=== PATIENT | female | born 1945 | race Caucasian/White ===

== ENCOUNTER 2020-12-23 13:44 | Outpatient (CLI) | payer MEDICARE, SELFPAY ==
--- NOTE | ~2020-12-23 | XR_ITS ---
EXAMINATION: XR abdomen/kub 1V DATE: 12/23/2020 14:08 INDICATION: Right kidney stone. TECHNIQUE: A supine view of the abdomen on 2 radiographs was obtained. COMPARISON: CT abdomen and pelvis 12/23/2020 FINDINGS: There are no dilated loops of bowel. There are changes of posterior fusion procedure at L4- L5. IMPRESSION: 1. No urolithiasis. Reviewed, dictated and finalized at location A. IMPRESSION: 1. No urolithiasis.
--- NOTE | ~2020-12-23 | CT_ITS ---
EXAMINATION: CT abdomen pelvis wo con DATE: 12/23/2020 14:12 INDICATION: Kidney calculus TECHNIQUE: Computed tomography (CT) of the abdomen and pelvis was performed without intravenous contr ast. Automated exposure control and iterative reconstruction technique were employed. Exam dose: 488 .23 mGy-cm total exam DLP. COMPARISON: 12/23/2020 KUB FINDINGS: There is mild discoid atelectasis or scarring at the lung bases. Normal heart size. No pe ricardial or pleural effusion. No hepatic, splenic, pancreatic, adrenal or renal space occupying mass lesion is evident on this nonc ontrast examination. No bile duct or pancreatic duct dilatation. Bilateral renal scarring, left greater than right. No renal or ureteral calculus or hydroureteroneph rosis. Some small small stones are noted in the dependent aspect of the urinary bladder. The urinary bladder and uterus and adnexa are otherwise unremarkable. There is atherosclerotic calcification but normal caliber of the abdominal aorta. No intraperitoneal or retroperitoneal or pelvic mass lesion or adenopathy or ascites. There is diverticulosis of the colon; no CT evidence of diverticulitis. No bowel obstruction, bowel w all thickening, pneumatosis or intraperitoneal free air is detected. There is severe degenerative disc disease at L1-2, L2-3, L3-4, moderate degenerative disc disease and mild anterolisthesis due to degenerative changes apophyseal joints at L4-5. Posterior spinous proces s surgical fusion at L4-5. IMPRESSION: Small bladder stones; no renal or ureteral calculi or hydroureteronephrosis Mild colonic diverticulosis; no CT evidence of diverticulitis Reviewed, dictated and finalized at Location A. Reviewed, dictated and finalized at location B. IMPRESSION: Small bladder stones; no renal or ureteral calculi or hydrouretero nephrosis Mild colonic diverticulosis; no CT evidence of diverticulitis
== END 2020-12-23 13:45 | disposition home or self-care (01) ==
LOC: ANHIMG 13:49
PROVIDERS: Visit Provider Urology
DX: N20.0 Calculus of kidney (principal); N21.0 Calculus in bladder; K57.30 Diverticulosis of large intestine without perforation or abscess without bleeding
CPT/HCPCS: 74018; 74176

== ENCOUNTER 2021-02-06 10:20 | Outpatient (CLI) | payer MEDICARE, SELFPAY ==
--- NOTE | 2021-02-06 10:26 | ECG_ITS ---
Measurements Intervals [place] Rate: 73 P: 62 DE: 201 QRS: 22 QRSD: 103 T: 17 QT: 387 QTc: 429 Interpretive Statements SINUS RHYTHM LOW QRS VOLTAGE IN PRECORDIAL LEADS BASELINE ARTIFACT- I, II, III, AVR, V5-V6 BORDERLINE ECG Electronically Signed On 02-06-2021 10:55:23 CDT by Jose Roach D.O.
== END 2021-02-06 10:21 | disposition home or self-care (01) ==
PROVIDERS: PCP Internal Medicine; Visit Provider Urology
DX: N21.0 Calculus in bladder (principal); E78.00 Pure hypercholesterolemia, unspecified; Z01.818 Encounter for other preprocedural examination; R94.31 Abnormal electrocardiogram [ECG] [EKG]
CPT/HCPCS: 87086; 87088; 93005

== ENCOUNTER 2021-02-11 01:21 | Day surgery (SDC) | payer MEDICARE, SELFPAY ==
[2021-01-31 12:47] VITALS: BMI 40.5
[2021-02-11] VITALS (8 sets, daily range): BP systolic 110–154; BP diastolic 60–74; PULSE 55–72; RESP 13–20; TEMP 36.2–36.3; O2SAT 94–100; BMI 41.3
--- NOTE | 2021-02-11 10:40 | WPDANESEPPF ---
Anes - Initial Pre Proc Eval Procedure: Operation Date: 02/11/21 12:30 Proposed Procedures p Cystoscopy, Bladder Stones Extraction - Robert Lewis MD Date/Time: 02/11/21 10:40 Surgeon: Robert Lewis MD Pre Op Diagnosis: Bladder Stones, Urethral Stricture Patient Data Age: 75 Gender: F Height: 1.55 m Weight: 97.27 kg Allergies Allergy/AdvReac Type Severity Reaction Status Date / Time metoclopramide [From Reglan] AdvReac Intermediate Shakiness Verified 02/11/21 10:42 Home Medications Medication Instructions Recorded Confirmed Type aspirin 81 mg PO HS 01/31/21 01/31/21 History atorvastatin 40 mg HS 01/31/21 01/31/21 History celecoxib 200 mg QAM 01/31/21 01/31/21 History cetirizine 10 mg PO BID 01/31/21 01/31/21 History diazepam 2 mg BID 01/31/21 01/31/21 History dicyclomine 10 mg TID 01/31/21 01/31/21 History esomeprazole magnesium [Nexium] 40 mg BID 01/31/21 01/31/21 History levothyroxine 100 mcg QAM 01/31/21 01/31/21 History lidocaine [Lidocaine Pain Relief] 1 patch TOPICAL PRN PRN 01/31/21 01/31/21 History lubiprostone [Amitiza] 24 mcg PO BID 01/31/21 01/31/21 History nitrofurantoin monohyd/m-cryst 100 mg HS 01/31/21 01/31/21 History oxybutynin chloride 5 mg PO BID 01/31/21 01/31/21 History polyethylene glycol 3350 17 g PRN PRN 01/31/21 01/31/21 History sulfamethoxazole-trimethoprim 1 tablet DAILY 01/31/21 01/31/21 History trazodone 150 mg PO HS 01/31/21 01/31/21 History ECG: Date of Service: 02/06/21 Procedure(s): CA 12 lead EKG Accession Number(s): [id number] cc: ~ Measurements Intervals [place] Rate: 73 P: 62 DC: 201 QRS: 22 QRSD: 103 T: 17 QT: 387 QTc: 429 Interpretive Statements SINUS RHYTHM LOW QRS VOLTAGE IN PRECORDIAL LEADS BASELINE ARTIFACT- I, II, III, AVR, V5-V6 BORDERLINE ECG Electronically Signed On 02-06-2021 10:55:23 CDT by Jose Roach D.O. Patient hx anesthesia problems: none Family hx anesthesia problems: none [facility] Past Medical History Medical History (Updated 02/11/21 @ 10:54 by Hernando Garcia MD) Bronchomalacia Chronic GERD HTN (hypertension) Hypercholesterolemia Hypothyroidism IBS (irritable bowel syndrome) Morbid obesity with BMI of 40.0-44.9, adult On home O2 Osteoarthritis Social History Social History Smoking status: Never smoker Second hand tobacco smoke exposure: No Alcohol intake: never Substance use: never Substance use type: does not use Living arrangements: with family Spiritual care concerns: No Anes - Eval Final PreProcedure Day of Procedure 02/11/21 10:40 Patient weight: obese Heart: regular rate and rhythm Lungs: clear to auscultation and normal air movement Airway: Mallampati scale class II Neurological: alert and oriented Last oral intake: >/= 8 hours ASA classification: III Emergent: no Anesthetic plan: proceed Anesthesia type and monitoring: general LMA Informed Consent: The patient's anesthetic plan and its attendant risks and benefits were discussed with the patient/family/POA. Questions were solicited and answers provided to the satisfaction of the patient/family/POA.
--- NOTE | 2021-02-11 10:52 | SUR.PREOP ---
PT WEARING SUPPORT HOSE FROM HOME FOR LEG SWELLING. ASKING TO WEAR THEM TO OR. CHANGED TO KNEE HIGH RHODA HOSE PER PT REQUEST.
[2021-02-11] MEDS: LACTATED RINGERS 1,000 ML 30 ML IV CONT (11:02)
--- NOTE | 2021-02-11 12:02 | WPDHPUPDATE1 ---
History and Physical Update Update Date/Time: 02/11/21 12:02 History and Physical has been reviewed, including an updated exam of the patient. There are NO changes in the patient's condition. Risks, benefits, and alternatives have been discussed and questions answered. Patient agrees to proceed with procedure. Proceed with cysto, extraction of bladder stones
[2021-02-11] MEDS: ceFAZolin 2 GM/D5W 50 ML 2 GM/50 ML BAG IVPB (12:37)
[2021-02-11] MEDS: LIDOCAINE HCL 2% GEL UROJET 10 ML PKG MUCOUS MEM (12:49)
--- NOTE | 2021-02-11 13:00 | P.OP_ITS ---
Procedure Note - Detailed Date of Procedure 02/11/21 Pre-op Diagnosis Bladder Stones, Urethral Stricture Post-op Diagnosis same Procedure Performed Cysto, urethral dilation to 30 Croatian, extraction of bladder calculi Surgeon Robert Lewis MD Anesthesia general Description of Procedure Patient is taken the operative suite correctly identified. Once anesthesia was obtained she was placed in dorsal lithotomy position and prepped and draped usual sterile fashion. Her urethra was dilated to 30 Croatian without difficulty. Twenty-two Croatian scope was inserted the bladder. There is no tumors noted. She has approximately 15-20 small little round stones which were 1-2 mm in size. These were then extracted. Some of them were sent for analysis. 2% viscous lidocaine was inserted urethra patient is taken recovery stable condition. Drains No Packing No Pathology yes Complications No immediate complications Condition stable Disposition PACU
== END 2021-02-11 14:38 | disposition home or self-care (01) ==
PROVIDERS: PCP Internal Medicine; Visit Provider Urology
PROC: 0TCB8ZZ Extirpation of Matter from Bladder, Via Natural or Artificial Opening Endoscopic (ICD-10-PCS; CPT 52352; principal; 2021-02-11 12:30)
DX: N21.0 Calculus in bladder (principal); N35.92 Unspecified urethral stricture, female; I10 Essential (primary) hypertension; E78.00 Pure hypercholesterolemia, unspecified; E03.9 Hypothyroidism, unspecified; K21.9 Gastro-esophageal reflux disease without esophagitis; K58.9 Irritable bowel syndrome, unspecified; Z99.81 Dependence on supplemental oxygen; J98.09 Other diseases of bronchus, not elsewhere classified; M19.90 Unspecified osteoarthritis, unspecified site; Z79.82 Long term (current) use of aspirin; E66.9 Obesity, unspecified; Z68.41 Body mass index [BMI] 40.0-44.9, adult
CPT/HCPCS: 52310; 82365; 87086; 87088; 88300; 93005; A9270; J0690; J1100; J2250; J2405; J2704; J3010; J7120

== ENCOUNTER 2021-07-04 21:03 | Emergency (ER) | payer MEDICARE, SELFPAY ==
--- NOTE | ~2021-07-04 | XR_ITS ---
EXAMINATION: XR chest 2V DATE: 07/04/2021 22:04 INDICATION: Cough. Shortness of breath. TECHNIQUE: Frontal and lateral views of the chest were obtained. COMPARISON: CT abdomen and pelvis 12/23/2020 FINDINGS: There is a 2 cm nodule at the junction of right mid and upper lung zones. There is mild ate lectasis in the lower lung zones. No pleural effusion or pneumothorax. The heart size is normal. Ther e are changes of anterior fusion procedure in cervical spine. IMPRESSION: 1. 2 cm nodule at the junction of right mid and upper lung zone suspicious for primary bronchogenic c arcinoma. Noncontrast chest CT is recommended. I called this result to Dr. North. 2. Mild atelectasis in the lower lung zones. Reviewed, dictated and finalized at location E. T CATCHER IMPRESSION: 1. 2 cm nodule at the junction of right mid and upper lung zone suspicious for primary bronchogenic carcinoma. Noncontrast chest CT is recommended. I called t his result to Dr. North. 2. Mild atelectasis in the lower lung zones.
--- NOTE | ~2021-07-04 | CT_ITS ---
EXAMINATION:CT diagnostic chest wo con DATE: 07/04/2021 22:32 INDICATION: Lung nodule. TECHNIQUE: Computed tomography (CT) of the chest was performed without intravenous contrast. Automate d exposure control and iterative reconstruction technique were employed. The dose-length product (DLP ) was 358.08 mGy-cm. COMPARISON: CT abdomen and pelvis 12/23/2020 FINDINGS: There is mild atelectasis in the lungs. There is mild scarring at the lung apices. There is mild bronchiectasis in right middle lobe and lingula. There are patchy groundglass opacities and sma ll nodules in right upper lobe and right lower lobe, consistent with pneumonia. No pleural effusion. The heart size is normal. There are coronary artery calcifications. No pericardial effusion. There ar e changes of anterior fusion procedure in cervical spine. There is severe thoracic spondylosis. IMPRESSION: 1. Mild pneumonia involving right upper lobe and right lower lobe. Some of these findings correlate w ith the chest radiograph abnormality. Reviewed, dictated and finalized at location E. ICULUM FACILITATOR IMPRESSION: 1. Mild pneumonia involving right upper lobe and right lower lobe. Some of thes e findings correlate with the chest radiograph abnormality.
[2021-07-04 21:05] VITALS: BP 144/66; PULSE 94; RESP 18; TEMP 36.5; O2SAT 97
[2021-07-04] MEDS: ALBUTEROL SULFATE NEB 2.5 MG/0.5 ML INH 5 MG INHALATION (22:06)
[2021-07-04] MEDS: IPRATROPIUM BR 0.02% INH SOLN 0.5 MG/2.5 ML VIAL INHALATION (22:06)
[2021-07-04 22:07] VITALS: PULSE 98; RESP 19
--- NOTE | 2021-07-04 22:54 | ED.GENADULT ---
HPI - General Adult General Chief complaint: Upper Respiratory Infection Stated complaint: cough for 2 weeks Time Seen by Provider: 07/04/21 21:27 History of Present Illness HPI narrative: Patient is a 76-year-old female who presents to the ER with cough. Ongoing over the last 2 weeks worsening over the last couple days. She has been treated with azithromycin without improvement. She has been taking sinus decongestants and expectorants without improvement. Denies fevers or chills or sweats. Has history of chronic bronchitis and sees a head chopper at [facility]. No chest pain or chest pressure. Reports in the past when this happened she requires multiple rounds of antibiotics to improve. Related Data Home Medications Medication Instructions Recorded Confirmed aspirin 81 mg PO HS 01/31/21 02/11/21 atorvastatin 40 mg HS 01/31/21 02/11/21 celecoxib 200 mg QAM 01/31/21 02/11/21 cetirizine 10 mg PO BID 01/31/21 02/11/21 diazepam 2 mg BID 01/31/21 02/11/21 dicyclomine 10 mg TID 01/31/21 02/11/21 esomeprazole magnesium [Nexium] 40 mg BID 01/31/21 02/11/21 levothyroxine 100 mcg QAM 01/31/21 02/11/21 lidocaine [Lidocaine Pain Relief] 1 patch TOPICAL PRN PRN 01/31/21 02/11/21 lubiprostone [Amitiza] 24 mcg PO BID 01/31/21 02/11/21 nitrofurantoin monohyd/m-cryst 100 mg HS 01/31/21 02/11/21 oxybutynin chloride 5 mg PO BID 01/31/21 02/11/21 polyethylene glycol 3350 17 g PRN PRN 01/31/21 01/31/21 sulfamethoxazole-trimethoprim 1 tablet DAILY 01/31/21 02/11/21 trazodone 150 mg PO HS 01/31/21 02/11/21 Allergies Allergy/AdvReac Type Severity Reaction Status Date / Time metoclopramide [From Reglan] AdvReac Intermediate Shakiness Verified 07/04/21 21:12 Review of Systems Review of Systems: All systems reviewed & are unremarkable except as noted in HPI and below Constitutional: Constitutional: Denies chills, Reports fatigue, Denies fever(s) and Reports weakness ENT: Reports nasal congestion and Denies sore throat Cardiovascular: Cardiovascular: Denies chest pain, Denies rapid heart rate and Denies radiating jaw, neck or arm pain Respiratory: Respiratory: Reports chest congestion, Reports cough, Denies dyspnea and Reports wheezing Gastrointestinal: Gastrointestinal: Denies abdominal pain, Denies nausea and Denies vomiting PMFSH Past Medical History Medical History (Updated 07/04/21 @ 22:58 by Dustin North MD) Bronchomalacia Chronic GERD Erosion of suburethral sling HTN (hypertension) Hypercholesterolemia Hypothyroidism IBS (irritable bowel syndrome) Morbid obesity with BMI of 40.0-44.9, adult On home O2 Osteoarthritis Surgical History Surgical History (Updated 07/04/21 @ 22:56 by Dustin North MD) History of knee surgery Social History Social History (System 06/13/21 @ 11:08 by Myke Ly) Smoking status: Never smoker Second hand tobacco smoke exposure: No Alcohol intake: never Substance use: never Substance use type: does not use Spiritual care concerns: No Exam Narrative: GENERAL: Well-appearing, well-nourished, and in no acute distress. HEAD: Normocephalic, atraumatic. CHEST: Diffuse wheezing and rhonchi with frequent coughing. No respiratory distress. HEART: Regular rate and rhythm. Normal peripheral pulses. EXTREMITIES: Normal range of motion. No edema. SKIN: Warm, dry, no rash. NEURO: Alert and oriented x3. PSYCH: Normal mood and affect. Course Course Emergency Course: Patient informed of results. Lung sounds improved with nebulizer treatment. Discharge with albuterol/Levaquin/prednisone. Recommend follow-up with pulmonology. Vital Signs Vital signs: Vital Signs Temperature 97.7 F 07/04/21 21:05 Pulse Rate 94 07/04/21 21:05 Respiratory Rate 18 07/04/21 21:05 Blood Pressure 144/66 H 07/04/21 21:05 Pulse Oximetry 97 07/04/21 21:05 Temperature 97.7 F 07/04/21 21:05 Pulse Rate 98 07/04/21 22:07 Respiratory Rate 19 07/04/21 22:07 Blood Pressure 14
[2021-07-04 22:55] VITALS: BP 113/73; PULSE 89; RESP 16; O2SAT 98
[2021-07-04 22:56] VITALS: BP 123/64; PULSE 101; RESP 18
[2021-07-04 23:24] VITALS: PULSE 86; RESP 20; O2SAT 96
--- NOTE | 2021-07-05 02:50 | PC.NURSE ---
all documentation done under [facility] was performed by Merlyn Lyn RN. times of documentation are correct.
== END 2021-07-04 23:28 | disposition home or self-care (01) ==
PROVIDERS: Emergency Provider Emergency Medicine; PCP Internal Medicine
DX: J18.9 Pneumonia, unspecified organism (principal); J42 Unspecified chronic bronchitis; K21.9 Gastro-esophageal reflux disease without esophagitis; I10 Essential (primary) hypertension; E78.00 Pure hypercholesterolemia, unspecified; E03.9 Hypothyroidism, unspecified; K58.9 Irritable bowel syndrome, unspecified; E66.01 Morbid (severe) obesity due to excess calories; Z68.41 Body mass index [BMI] 40.0-44.9, adult; M19.90 Unspecified osteoarthritis, unspecified site; Z99.81 Dependence on supplemental oxygen; Z79.82 Long term (current) use of aspirin
CPT/HCPCS: 71046; 71250; 94640; 99284

== ENCOUNTER 2021-07-31 10:50 | Outpatient (CLI) | payer MEDICARE, SELFPAY ==
--- NOTE | ~2021-07-31 | XR_ITS ---
EXAMINATION: XR abdomen/kub 1V EXAM DATE: 07/31/2021 11:08 INDICATION: Right flank pain. Kidney stone. TECHNIQUE: Frontal projection(s) of the abdomen for interpretation. Comparison is made to prior exami nation from 12/23/2020. FINDINGS: Nonobstructive bowel gas pattern. No definite urolith identified. L4-5 posterior fusion. M ild to moderate lumbar dextroscoliosis and moderate to severe spondylosis. Lung bases unremarkable. T here is no organomegaly. IMPRESSION: No suspicious calcifications. Reviewed, dictated and finalized at location A. ITIONING YARD SUPERVISOR
== END 2021-07-31 10:51 | disposition home or self-care (01) ==
PROVIDERS: PCP Internal Medicine; Visit Provider Nurse Practitioner Adult Health
DX: N20.0 Calculus of kidney (principal)
CPT/HCPCS: 74018

== ENCOUNTER 2021-08-07 08:18 | Outpatient (CLI) | payer MEDICARE, SELFPAY ==
--- NOTE | ~2021-08-07 | CT_ITS ---
EXAMINATION: CT abdomen pelvis wo con DATE: 08/07/2021 08:43 INDICATION: Right-sided renal colic. TECHNIQUE: Computed tomography (CT) of the abdomen and pelvis was performed without intravenous contr ast. Automated exposure control and iterative reconstruction technique were employed. The dose-length product was 551.44 mGy-cm. COMPARISON: CT abdomen and pelvis 12/23/2020 FINDINGS: The visualized portions of the lung bases demonstrate mild atelectasis and mild chronic umberto g disease. No pleural effusion. The heart size is normal. Again seen is a small pericardial effusion. The liver, gallbladder, spleen, pancreas, and adrenal glands are normal. There is cortical thinning of the kidneys. There is a 2 mm stone in right kidney. No hydronephrosis. There is diverticulosis of the colon without evidence of diverticulitis. There are no dilated loops of bowel. The appendix is no t visualized. There are no pathologically enlarged lymph nodes. There is no free intraperitoneal flui d. There is severe lumbar spondylosis. There is fixation of the spinous processes at L4-L5. IMPRESSION: 1. 2 mm nonobstructing right kidney stone. Reviewed, dictated and finalized at location A.
== END 2021-08-07 08:19 | disposition home or self-care (01) ==
LOC: ANHIMG 08:24
PROVIDERS: PCP Internal Medicine; Visit Provider Urology
DX: N23 Unspecified renal colic (principal); N20.0 Calculus of kidney
CPT/HCPCS: 74176

== ENCOUNTER 2024-05-24 17:24 | Emergency (ER) | payer MEDICARE, SELFPAY ==
--- NOTE | ~2024-05-24 | XR_ITS ---
EXAMINATION: XR chest 2V Exam Date/Time: 05/24/2024 20:49 [facility] HISTORY: cough. hx of bronchitis Comparison: 07/04/2021; CT chest 07/04/2021. RESULT: Lines, tubes, and devices: ACDF hardware. Lungs and pleura: Clear. Cardiomediastinal silhouette: Stable. Other: No acute osseous or upper abdominal finding. IMPRESSION: No acute cardiopulmonary process. Reviewed, dictated and finalized at location [facility]
[2024-05-24 17:31] VITALS: BP 149/96; PULSE 97; RESP 16; TEMP 36.6; O2SAT 95
--- NOTE | 2024-05-24 19:47 | ECG_ITS ---
Test Date: 2024-05-24 20:10:12 Measurements Intervals [place] Rate: 77 P: 62 AL: 196 QRS: 24 QRSD: 93 T: 31 QT: 383 QTc: 436 Interpretive Statements SINUS RHYTHM LOW QRS VOLTAGE IN PRECORDIAL LEADS [QRS DEFLECTION < 1.0 mV IN CHEST LEADS] mild ST depressions in leads II, III, AVF No previous ECG available for comparison Electronically Signed On 05-29-2024 10:24:46 EGG AND SPICE MIXER by Niles Martinez M.D.
[2024-05-24 20:10] VITALS: BP 136/89; PULSE 100; RESP 19; TEMP 37; O2SAT 97
[2024-05-24] MEDS: IPRATROPIUM 0.5 MG/ALBUTEROL SULFATE 2.5 MG AMPUL.NEB 3 ML 6 ML INHALATION (20:21)
[2024-05-24 20:22] LABS: Basophils Percent Auto 0.7 % (0.2-1.2); Eosinophils Absolute Auto 0.3 K/mm3 (0-0.3); Eosinophils Percent Auto 4.7 % (0-4.4); Hematocrit 36.9 % (37.0-47.0); Hemoglobin 12.2 g/dL (12.0-15.0); Immature Granulocyte Absolute 0.01 K/mm3 (0.00-0.031); Immature Granulocyte Percent A 0.2 % (0-0.5); Lymphocytes Absolute Auto 1.91 K/mm3 (0.9-3.2); Lymphocytes Percent Auto 33.5 % (18.3-44.2); Mean Corpuscular HGB Conc 33.1 g/dl (32-36); Mean Corpuscular Hemoglobin 32.4 pg (26-34); Mean Corpuscular Volume 97.9 fl (80-100); Mean Platelet Volume 10.4 fl (7.4-10.4); Monocytes Absolute Auto 0.6 K/mm3 (0.1-0.6); Neutrophils Absolute Auto 2.9 K/mm3 (1.3-6.7); Neutrophils Percent Auto 50.9 % (45.5-73.1); Platelet Count Result 174 k/mm3 (150-375); Red Blood Count 3.77 M/mm3 (4.2-5.4); Red Cell Distribution Width 13.2 % (11.5-14.5); White Blood Count 5.7 K/mm3 (4.5-10.0)
[2024-05-24 20:23] VITALS: PULSE 75; RESP 18
[2024-05-24 20:33] LABS: Alanine Aminotransferase 28 U/L (6-35); Albumin Level 4.3 g/dL (3.5-5.1); Alkaline Phosphatase 73 U/L (38-126); Anion Gap 3 mmol/L (4-12); Aspartate Amino Transferase 33 U/L (14-36); Bilirubin,Total 0.7 mg/dL (0.2-1.3); Blood Urea Nitrogen 22 mg/dL (7-17); Calcium 9.1 mg/dL (8.4-10.2); Carbon Dioxide 32 mmol/L (22-30); Chloride 101 mmol/L (98-107); Estimated CRCL calculation 44 ml/min; Estimated Glomerular Filt Rate 53; Glucose 120 mg/dL (65-110); Potassium 3.8 mmol/L (3.4-5.0); Sodium 136 mmol/L (137-145)
[2024-05-24 20:35] VITALS: PULSE 69; RESP 19
[2024-05-24] MEDS: SODIUM CHLORIDE 0.9% IV 1,000 ML 999 ML IV CONT (20:42)
[2024-05-24 21:00] LABS: Influenza A QL RT-PCR Negative (Negative); Influenza B QL RT-PCR Negative (Negative); RSV RNA, RT-PCR Negative (Negative); SARS-CoV-2 RNA PCR Negative (Negative)
[2024-05-24 21:30] VITALS: BP 135/74; PULSE 65; RESP 20; TEMP 36.6; O2SAT 99
[2024-05-24 22:30] VITALS: BP 140/74; PULSE 89; RESP 14; TEMP 36.5; O2SAT 100
--- NOTE | 2024-05-24 23:43 | ED_ITS ---
HPI - General Adult General Chief complaint: Upper Respiratory Infection Stated complaint: chest pain, cough since 05/05 Time Seen by Provider: 05/24/24 19:06 History of Present Illness HPI narrative: This is an 78-year-old female with a history of bronchitis presenting with cough for 3 weeks. She has also had a sore throat some chest and back pain when she coughs. She has not had any fevers nausea vomiting or diarrhea. Patient says she has this multiple times per year. She is concerned because it has not improved. She has been treated with azithromycin without improvement. Related Data Home Medications ?Medication ?Instructions ?Recorded ?Confirmed ?Last Taken ?Type aspirin 81 mg tablet 81 mg PO HS 01/31/21 02/11/21 02/04/21 History atorvastatin 40 mg tablet 40 mg HS 01/31/21 02/11/21 02/10/21 History celecoxib 200 mg capsule 200 mg QAM 01/31/21 02/11/21 02/10/21 History cetirizine 10 mg capsule 10 mg PO BID 01/31/21 02/11/21 02/10/21 History diazepam 2 mg tablet 2 mg BID 01/31/21 02/11/21 02/11/21 History dicyclomine 10 mg capsule 10 mg TID 01/31/21 02/11/21 02/10/21 History esomeprazole magnesium 40 mg 40 mg BID 01/31/21 02/11/21 02/10/21 History capsule,delayed release (Nexium) levothyroxine 100 mcg tablet 100 mcg QAM 01/31/21 02/11/21 02/10/21 History lidocaine 4 % topical patch 1 patch topical PRN PRN Pain 01/31/21 02/11/21 02/09/21 History (Lidocaine Pain Relief) lubiprostone 24 mcg capsule 24 mcg PO BID 01/31/21 02/11/21 02/10/21 History (Amitiza) nitrofurantoin 100 mg HS 01/31/21 02/11/21 02/10/21 History monohydrate/macrocrystals 100 mg capsule oxybutynin chloride 5 mg tablet 5 mg PO BID 01/31/21 02/11/21 02/10/21 History polyethylene glycol 3350 17 17 g PRN PRN Constipation 01/31/21 01/31/21 Unknown History gram/dose oral powder sulfamethoxazole 800 1 tablet DAILY 01/31/21 02/11/21 02/10/21 History mg-trimethoprim 160 mg tablet trazodone 150 mg tablet,extended 150 mg PO HS 01/31/21 02/11/21 02/10/21 History release 24 hr Allergies Allergy/AdvReac Type Severity Reaction Status Date / Time metoclopramide (From Reglan) AdvReac Intermediate Shakiness Verified 07/04/21 21:12 [facility] Past Medical History Medical History (Updated 05/24/24 @ 23:49 by Fred Joel MD) Erosion of suburethral sling On home O2 Bronchomalacia Morbid obesity with BMI of 40.0-44.9, adult Hypothyroidism Osteoarthritis IBS (irritable bowel syndrome) Chronic GERD Hypercholesterolemia HTN (hypertension) Surgical History Surgical History (Updated 07/04/21 @ 22:56 by Dustin North MD) History of knee surgery Social History Social History (System 06/13/21 @ 11:08 by Myke Ly) Smoking status: Never smoker Second hand tobacco smoke exposure: No Alcohol intake: never Substance use: never Substance use type: does not use Living arrangements: with family Spiritual care concerns: No Exam 2 Narrative: APPEARANCE: No apparent distress. Well-appearing Head: atraumatic. EYES: EOMI, NOSE: Atraumatic NECK: Trachea midline RESPIRATORY: No increased rate of breathing, speaking in full sentences, is very mild end-expiratory wheezing CARDIOVASCULAR: RRR, no peripheral edema ABDOMINAL: Non-distended, soft non-tender MUSCULOSKELETAl: No obvious deformities NEURO: Alert. Moving 4/4 extremities SKIN:: Warm, dry. Normal color PSYCHIATRIC: Normal affect Course Vital Signs Vital signs: Vital Signs Temperature 97.8 F 05/24/24 17:31 Pulse Rate 97 05/24/24 17:31 Respiratory Rate 16 05/24/24 17:31 Blood Pressure 149/96 H 05/24/24 17:31 Pulse Oximetry 95 05/24/24 17:31 Oxygen Delivery Room Air 05/24/24 17:31 Temperature 97.7 F 05/24/24 22:30 Pulse Rate 89 05/24/24 22:30 Respiratory Rate 14 05/24/24 22:30 Blood Pressure 140/74 05/24/24 22:30 Pulse Oximetry 100 05/24/24 22:30 Oxygen Delivery Room Air 05/24/24 20:10 Medical Decision Making MDM Narrative Medical decision making narrative: -Course: 78-year-old female with recurrent bronchitis presenting with bronchitis symptoms. Laboratory studies within normal limits. Afebrile. Normal white count. Chest x-ray without evidence of pneumonia. Viral swabs negative. Patient will be discharged follow-up with her primary care physician for further management. Given return precautions. -DDX includes but is not limited to: Viral syndrome, pneumonia, COVID flu -Co-morbidities complicating care: recurrent bronchitis -Independent interpretation of studies: labs and imaging reviewed -Shared decision making / Disposition:discharged. Vital Signs Vital Signs: Vital Signs Temperature 97.8 F 05/24/24 17:31 Pulse Rate 97 05/24/24 17:31 Respiratory Rate 16 05/24/24 17:31 Blood Pressure 149/96 H 05/24/24 17:31 Pulse Oximetry 95 05/24/24 17:31 Oxygen Delivery Room Air 05/24/24 17:31 Temperature 97.7 F 05/24/24 22:30 Pulse Rate 89 05/24/24 22:30 Respiratory Rate 14 05/24/24 22:30 Blood Pressure 140/74 05/24/24 22:30 Pulse Oximetry 100 05/24/24 22:30 Oxygen Delivery Room Air 05/24/24 20:10 Lab Data 05/24/24 20:06 05/24/24 20:06 Labs: Lab Results 05/24/24 Range/Units 20:06 WBC 5.7 (4.5-10.0) K/mm3 RBC 3.77 L (4.2-5.4) M/mm3 Hgb 12.2 (12.0-15.0) g/dL Hct 36.9 L (37.0-47.0) % MCV 97.9 (80-100) fl MCH 32.4 (26-34) pg MCHC 33.1 (32-36) g/dl RDW 13.2 (11.5-14.5) % Plt Count 174 (150-375) k/mm3 MPV 10.4 (7.4-10.4) fl Immature Gran % (Auto) 0.2 (0-0.5) % Neut % (Auto) 50.9 (45.5-73.1) % Lymph % (Auto) 33.5 (18.3-44.2) % [place] % (Auto) 10.0 H (2.6-8.5) % Eos % (Auto) 4.7 H (0-4.4) % Baso % (Auto) 0.7 (0.2-1.2) % Lymph # (Auto) 1.91 (0.9-3.2) K/mm3 [place] # (Auto) 0.6 (0.1-0.6) K/mm3 Eos # (Auto) 0.3 (0-0.3) K/mm3 Baso # (Auto) 0.0 (0.0-0.1) K/mm3 Abs Immat Gran (auto) 0.01 (0.00-0.031) K/mm3 Absolute Neuts (auto) 2.9 (1.3-6.7) K/mm3 Absolute Nucleated RBC 0.000 (0.0-0.012) K/mm3 Nucleated RBC % 0.0 (0.0-0.2) % Sodium 136 L (137-145) mmol/L Potassium 3.8 (3.4-5.0) mmol/L Chloride 101 (98-107) mmol/L Carbon Dioxide 32 H (22-30) mmol/L Anion Gap 3 L (4-12) mmol/L BUN 22 H (7-17) mg/dL Creatinine 1.00 (0.7-1.0) mg/dL Estim Creat Clear Calc 44 ml/min Estimated GFR 53 L (59 - ) Glucose 120 H (65-110) mg/dL Calcium 9.1 (8.4-10.2) mg/dL Total Bilirubin 0.7 (0.2-1.3) mg/dL AST 33 (14-36) U/L ALT 28 (6-35) U/L Alkaline Phosphatase 73 (38-126) U/L Total Protein 8.0 (6.3-8.2) g/dL Albumin 4.3 (3.5-5.1) g/dL Influenza A (RT-PCR) Negative (Negative) Influenza B (RT-PCR) Negative (Negative) RSV (RT-PCR) Negative (Negative) SARS-CoV-2 RNA (RT-PCR) Negative (Negative) Discharge Plan Discharge Clinical Impression: Bronchitis Patient Disposition: Home, Self-Care Condition: Stable Instructions: Antibiotic Form, Acute Bronchitis (ED) Additional Instructions: please take Motrin Tylenol for body aches or fevers. Please use cough drops or cough syrup for your cough. Follow-up with your primary care physician for further management. If you develop fevers worsening chest pain or shortness of breath you can return to ED at any time for re-evaluation. Patient Language: Turkmen Prescriptions: No Action celecoxib 200 mg capsule 200 mg QAM atorvastatin 40 mg tablet 40 mg HS lidocaine [Lidocaine Pain Relief] 4 % Adhesive Patch,Medicated 1 patch TOPICAL PRN PRN (Reason: Pain) sulfamethoxazole-trimethoprim 800-160 mg tablet 1 tablet DAILY levothyroxine 100 mcg tablet 100 mcg QAM diazepam 2 mg tablet 2 mg BID esomeprazole magnesium [Nexium] 40 mg capsule,delayed release(DR/EC) 40 mg BID aspirin 81 mg Tablet 81 mg PO HS polyethylene glycol 3350 17 gram/dose powder 17 g PRN PRN (Reason: Constipation) oxybutynin chloride 5 mg Tablet 5 mg PO BID dicyclomine 10 mg capsule 10 mg TID nitrofurantoin monohyd/m-cryst 100 mg capsule 100 mg HS lubiprostone [Amitiza] 24 mcg capsule 24 mcg PO BID cetirizine 10 mg Capsule 10 mg PO BID trazodone 150 mg Tablet Extended Release 24 Hr 150 mg PO HS prednisone 50 mg tablet 50 mg PO DAILY Qty: 7 0RF albuterol sulfate 90 mcg/actuation HFA aerosol inhaler 4 puff INHALATION QID PRN (Reason: shortness of breath or wheezing) Qty: 8 0RF levofloxacin 750 mg tablet 750 mg PO DAILY Qty: 5 0RF Follow-up/Referrals: UNKNOWN,DOCTOR [Primary Care Provider] -
== END 2024-05-25 00:05 | disposition home or self-care (01) ==
PROVIDERS: Emergency Provider Emergency Medicine
DX: J40 Bronchitis, not specified as acute or chronic (principal); Z20.822 Contact with and (suspected) exposure to COVID-19; I10 Essential (primary) hypertension; E78.00 Pure hypercholesterolemia, unspecified; E03.9 Hypothyroidism, unspecified; E66.01 Morbid (severe) obesity due to excess calories; Z68.41 Body mass index [BMI] 40.0-44.9, adult; K58.9 Irritable bowel syndrome, unspecified; K21.9 Gastro-esophageal reflux disease without esophagitis; M19.90 Unspecified osteoarthritis, unspecified site; Z99.81 Dependence on supplemental oxygen; Z79.82 Long term (current) use of aspirin; Z79.899 Other long term (current) drug therapy
CPT/HCPCS: 36415; 71046; 80053; 85025; 87637; 93005; 94640; 96360; 99283; J7030